=== PATIENT | female | born 1990 | race Caucasian/White ===

== ENCOUNTER 2017-08-26 13:11 | Emergency (ER) | payer OTHER ==
[~2017-08-26] VITALS: Ht 160 cm; Wt 57.7 kg
[2017-08-26 13:17] VITALS: BP 105/67
--- NOTE | 2017-08-26 13:30 | NUR ---
PATIENT PRESENTS TO ED WITH C/O SYNCOPE TODAY WHILE IN RESTROOM, PT THINKS MAYBE UNCONSCIOUS FOR ABOUT 1MIN PRECIPITATED BY LLQ PAIN----PT ADDS THIS HAS HAPPENED BEFORE ALWAYS BEFORE COMMENCING MENSES DENIES HEAD TRAUMA/INJURY, NO DIZZINESS PRODUCTIVE COUGH, BODYACHES, FATIGUE >1 WK HX---SYNCOPE RX---NONE . DENIES N/V/D; SKIN IS PINK/WARM/DRY; AAOX4 WITH EVEN AND STEADY GAIT; LUNGS CLEAR BL; HR EVEN AND REGULAR; PT DENIES ANY FEVER, CP, OR SOB AT THIS TIME; PATIENT STATES PAIN OF 0/10 AT THIS TIME; VSS; PATIENT POSITIONED FOR COMFORT; HOB ELEVATED; BEDRAILS UP X2; BED DOWN. ER MD MADE AWARE OF PT STATUS.
--- NOTE | 2017-08-26 13:31 | NUR ---
JULIANNE REDDY AT BEDSIDE FOR EKG
--- NOTE | 2017-08-26 13:40 | NUR ---
DR KEITH EVALUATING AAO PT AT BEDSIDE
--- NOTE | 2017-08-26 13:46 | NUR ---
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
[2017-08-26 14:32] VITALS: BP 107/70
--- NOTE | 2017-08-26 14:32 | NUR ---
Patient discharged with v/s stable. Written and verbal after care instructions given and explained. Patient alert, oriented and verbalized understanding of instructions. Ambulatory with steady gait. All questions addressed prior to discharge. ID band removed. Patient advised to follow up with PMD. Rx of AZITHROMYCIN, PROMETHAZINE given. Patient educated on indication of medication including possible reaction and side effects. Opportunity to ask questions provided and answered.
== END 2017-08-26 14:32 | disposition home or self-care (01) ==
LOC: MED 13:11
DX: J20.9 Acute bronchitis, unspecified (principal); R55 Syncope and collapse
CPT/HCPCS: 71010; 82948; 93005; 99284; Q0092; 99283